=== PATIENT | female | born 1970 | race Caucasian/White ===

== ENCOUNTER 2016-03-25 17:07 | Emergency (ER) | payer OTHER ==
[2016-03-25 17:35] VITALS: BP 130/87
--- NOTE | 2016-03-25 17:46 | UC ---
Throat Pain/Nasal Timmy HPI - HPI Summary HPI Summary: complaint of feeling a tickle in her throat that started 2 days ago fever this morning daughter tested positive for strep throat recently denies nasal congestion and cough - History of Current Complaint Chief Complaint: UCGeneralIllness Stated Complaint: THROAT PAIN Time Seen by Provider: 03/25/16 17:37 Hx Obtained From: Patient Hx Last Menstrual Period: currently - Allergies/Home Medications Allergies/Adverse Reactions: Allergies Allergy/AdvReac Type Severity Reaction Status Date / Time Banana Allergy Unknown Unknown Verified 03/25/16 17:35 Reaction Details Coconut Fatty Acids Allergy Unknown Unknown Verified 03/25/16 17:35 Reaction Details Latex Allergy Itching Verified 03/25/16 17:35 Polymyxin B Allergy Itching Verified 03/25/16 17:35 Winters Allergy Itching Verified 03/25/16 17:35 bananas Allergy Itching Uncoded 03/25/16 17:35 cantalope Allergy Itching Uncoded 03/25/16 17:35 kiwi Allergy Itching Uncoded 03/25/16 17:35 pineapple Allergy Itching Uncoded 03/25/16 17:35 strawberries Allergy Itching Uncoded 03/25/16 17:35 tape Allergy Itching Uncoded 03/25/16 17:35 PMH/Surg Hx/FS Hx/Imm Hx Previously Healthy: Yes Cardiovascular History Of: Denies: Hypertension, Pacemaker/ICD Respiratory History Of: Denies: Asthma GI/ History Of: Denies: Renal Disease Neurological History Of: Denies: Migraine Psychological History Of: Denies: Anxiety, Depression - Surgical History Surgical History: Yes Surgery Procedure, Year, and Place: - Family History Known Family History: Positive: None, Other Negative: Cardiac Disease, Hypertension, Diabetes Family History: migraine - mother, sister. - Social History Lives: With Family Alcohol Use: Rare Substance Use Type: None Smoking Status (MU): Never Smoked Tobacco Review of Systems Constitutional: Fever Skin: Negative Eyes: Negative ENT: Sore Throat Respiratory: Negative Cardiovascular: Negative Gastrointestinal: Negative Genitourinary: Negative Motor: Negative Neurovascular: Negative Musculoskeletal: Negative Neurological: Negative Psychological: Negative All Other Systems Reviewed And Are Negative: Yes Physical Exam Triage Information Reviewed: Yes Appearance: No Pain Distress, Well-Nourished, Obese Vital Signs: Initial Vital Signs Temp 98.3 F 03/25/16 17:31 Pulse 85 03/25/16 17:31 Resp 16 03/25/16 17:31 BP 130/87 03/25/16 17:31 Pulse Ox 99 03/25/16 17:31 Vital Signs Reviewed: Yes Eyes: Positive: Conjunctiva Clear ENT: Positive: Pharyngeal erythema, TMs normal. Negative: Nasal congestion, Nasal drainage Neck: Positive: No Lymphadenopathy Respiratory: Positive: Lungs clear, Normal breath sounds, No respiratory distress Cardiovascular: Positive: RRR, No Murmur, Pulses Normal Abdomen Description: Positive: Nontender, Soft Bowel Sounds: Positive: Present Musculoskeletal: Positive: No Edema Neurological: Positive: Alert Psychological Exam: Normal Skin Exam: Normal Throat Pain/Nasal Course/Dx - Differential Dx/Diagnosis Differential Diagnosis/HQI/PQRI: Pharyngitis, Other - strep throat Provider Diagnoses: pharyngitis Discharge - Discharge Plan Condition: Stable Disposition: HOME Patient Education Materials: Pharyngitis (ED) Referrals: Deirdre Bolanos MD [Primary Care Provider] - Additional Instructions: Increase fluids and rest Take acetaminophen for fever or pain Please review your discharge instructions. If your symptoms do not improve please call your primary care provider or return to urgent care.
== END 2016-03-25 18:00 | disposition home or self-care (01) ==
LOC: UCEAST 17:07
DX: J02.9 Acute pharyngitis, unspecified (principal); R50.9 Fever, unspecified
CPT/HCPCS: 87651; 99211; G0463

== ENCOUNTER 2016-03-25 17:27 | Emergency (ER) | payer OTHER | END 2016-03-25 17:54 | disposition left against medical advice (07) | LOC: UCEAST 17:27 | DX: J02.9 Acute pharyngitis, unspecified (principal); Z53.21 Procedure and treatment not carried out due to patient leaving prior to being seen by health care provider ==

== ENCOUNTER 2017-06-28 14:46 | Emergency (ER) | payer SELFPAY ==
[2017-06-28 15:03] VITALS: BP 122/81
--- NOTE | 2017-06-28 15:16 | UC ---
Throat Pain/Nasal Timmy HPI - HPI Summary HPI Summary: About a month ago pt got sick with URI sx; had nasal congestion and cough that have now almost fully resolved. 5 days ago started getting ST without new congestion or cough, still hasn't gone away. 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 - History of Current Complaint Chief Complaint: UCRespiratory Stated Complaint: SORE THROAT Time Seen by Provider: 06/28/17 15:02 Hx Obtained From: Patient Hx Last Menstrual Period: 4 days ago ?: No Onset/Duration: Gradual Onset, Lasting Days Severity: Mild Pain Intensity: 2 Cough: None Associated Signs & Symptoms: Negative: Sinus Discomfort, Nasal Discharge, Vomiting, Rash - Allergies/Home Medications Allergies/Adverse Reactions: Allergies Allergy/AdvReac Type Severity Reaction Status Date / Time MS Coconut Fatty Acids Allergy Unknown Unknown Verified 06/28/17 15:04 [Coconut Fatty Acids] Reaction Details MS Latex [Latex] Allergy Itching Verified 06/28/17 15:04 MS Polymyxin B [Polymyxin B] Allergy Itching Verified 06/28/17 15:04 MS Muse Allergy Itching Verified 06/28/17 15:04 bananas Allergy Itching Uncoded 03/25/16 17:35 cantalope Allergy Itching Uncoded 03/25/16 17:35 kiwi Allergy Itching Uncoded 03/25/16 17:35 pineapple Allergy Itching Uncoded 03/25/16 17:35 strawberries Allergy Itching Uncoded 03/25/16 17:35 tape Allergy Itching Uncoded 03/25/16 17:35 PMH/Surg Hx/FS Hx/Imm Hx Previously Healthy: Yes - Surgical History Surgical History: Yes Surgery Procedure, Year, and Place: - Family History Known Family History: Positive: None, Other Family History: migraine - mother, sister. - Social History Occupation: Employed Full-time Lives: With Family Alcohol Use: None Substance Use Type: None Smoking Status (MU): Never Smoked Tobacco Review of Systems Constitutional: Fatigue Skin: Negative Eyes: Negative ENT: Sore Throat Respiratory: Negative Cardiovascular: Negative Gastrointestinal: Negative Genitourinary: Negative Motor: Negative Neurovascular: Negative Musculoskeletal: Negative Neurological: Negative Psychological: Negative Is Patient Immunocompromised?: No All Other Systems Reviewed And Are Negative: Yes Physical Exam Triage Information Reviewed: Yes Appearance: Well-Appearing, No Pain Distress, Obese Vital Signs: Initial Vital Signs Temp 98.6 F 06/28/17 14:58 Pulse 98 06/28/17 14:58 Resp 18 06/28/17 14:58 BP 122/81 06/28/17 14:58 Pulse Ox 97 06/28/17 14:58 Vital Signs Reviewed: Yes Eye Exam: Normal Eyes: Positive: Conjunctiva Clear ENT: Positive: Hearing grossly normal, Pharyngeal erythema, TMs normal. Negative: Nasal congestion, Nasal drainage Dental Exam: Normal Neck: Positive: Supple, Enlarged Nodes @ - tonsillar Respiratory Exam: Normal Respiratory: Positive: Chest non-tender, Lungs clear, Normal breath sounds, No respiratory distress, No accessory muscle use Cardiovascular: Positive: No Murmur, Tachycardia Musculoskeletal Exam: Normal Neurological Exam: Normal Neurological: Positive: Alert Psychological Exam: Normal Skin Exam: Normal Throat Pain/Nasal Course/Dx - Course Course Of Treatment: Discussed pro/con of RST, pt declines due to lack of insurance at this time. - Differential Dx/Diagnosis Provider Diagnoses: pharyngitis Discharge - Sign-Out/Discharge Documenting (check all that apply): Discharge/Admit/Transfer - Discharge Plan Condition: Stable Disposition: HOME Prescriptions: Amoxicillin PO (*) [Amoxicillin 875 MG (*)] 875 mg PO BID #20 tab Patient Education Materials: Pharyngitis (ED) Referrals: Deirdre Bolanos MD [Primary Care Provider] - Additional Instructions: As we discussed, your symptoms are suggestive of strep and you have exposure to kids. Please finish the course of antibiotics and call/come back if you have new or prolonged symptoms. - Billing Disposition and Condition Condition: STABLE Disposition: HOME
== END 2017-06-28 15:20 | disposition home or self-care (01) ==
LOC: UCEAST 14:46
DX: J02.9 Acute pharyngitis, unspecified (principal); R53.83 Other fatigue
CPT/HCPCS: 99212; G0463